=== PATIENT | female | born 1995 | race African-American/Black ===

== ENCOUNTER 2017-06-26 20:24 | Emergency (ER) | payer MEDICAID | END 2017-06-26 20:30 | disposition left against medical advice (07) | LOC: ER 20:30 | DX: S01.81XA Laceration without foreign body of other part of head, initial encounter (principal); Z53.21 Procedure and treatment not carried out due to patient leaving prior to being seen by health care provider; X58.XXXA Exposure to other specified factors, initial encounter; Y93.89 Activity, other specified; Y92.89 Other specified places as the place of occurrence of the external cause; Y99.8 Other external cause status ==